=== PATIENT | male | born 1950 | race Caucasian/White ===

== ENCOUNTER → 2016-10-12 | Outpatient (REF) | payer MEDICARE, OTHER ==
[~2016-10-12] MED LIST: ASPI81TA85 PO; CIAL5TAB PO; CYCL10TA PO; SIMV20TA2 PO; TRAM37.53 PO; TRAZ50TA4 PO; VENL225T PO; tamsulosin PO
== END ==
LOC: M LAB REF 13:22
PROVIDERS: ATTEND Internal Medicine
DX: Z01.89 Encounter for other specified special examinations (principal)

== ENCOUNTER 2017-01-11 08:12 | Outpatient (CLI) | payer MEDICARE, OTHER ==
[~2017-01-11] VITALS: Ht 165.1 cm; Wt 77.1 kg
[~2017-01-11 08:12] MED LIST changes: +FLOM5CAP PO; +TRAZ50TA11 PO; -TRAZ50TA4 PO; +VENL75TA2 PO
[2017-01-11] MEDS ORDERED: NS 1,000 ML IV ONE (08:30)
[2017-01-11] MEDS ORDERED: PROPOFOL 200 MG/20 ML VIAL As Ordered ONE (09:05)
--- NOTE | 2017-01-11 09:33 | ROOR ---
Patient Name: Marcell Ocampo Procedure Date: 01/11/2017 9:11 AM Date of : 1950 Age: 66 [facility]: [facility] Gender: Male Note Status: Finalized Procedure: Total Colonoscopy to Cecum + Cold Snare Polypectomy + Hemoclips Indications: High risk colon cancer surveillance: Personal history of colonic polyps, Last colonoscopy: 2010 Providers: Jeancarlos Modi MD Referring MD: Karena VERDIN MD Requesting Provider: Medicines: Monitored Anesthesia Care Complications: No immediate complications. Procedure: Pre-Anesthesia Assessment: - The heart rate, respiratory rate, oxygen saturations, blood pressure, adequacy of pulmonary ventilation, and response to care were monitored throughout the procedure. The Colonoscope was introduced through the anus and advanced to the cecum, identified by appendiceal orifice and ileocecal valve. The colonoscopy was performed without difficulty. The patient tolerated the procedure well. The quality of the bowel preparation was good. Findings: The perianal and digital rectal examinations were normal. Non-bleeding internal hemorrhoids were found during retroflexion. The hemorrhoids were small and Grade I (internal hemorrhoids that do not prolapse). Scattered small-mouthed diverticula were found in the recto-sigmoid colon, sigmoid colon and descending colon. A medium polyp was found in the mid ascending colon. The polyp was sessile. The polyp was removed with a cold snare. Resection and retrieval were complete. To prevent bleeding after the polypectomy, two hemostatic clips were successfully placed (MR conditional). There was no bleeding at the end of the procedure. The exam was otherwise without abnormality on direct and retroflexion views. Impression: - Non-bleeding internal hemorrhoids. - Diverticulosis in the recto-sigmoid colon, in the sigmoid colon and in the descending colon. - One medium polyp in the mid ascending colon, removed with a cold snare. Resected and retrieved. Clips (MR conditional) were placed. - The examination was otherwise normal on direct and retroflexion views. - The exam was otherwise normal to the cecum. Recommendation: - Patient has a contact number available for emergencies. The signs and symptoms of potential delayed complications were discussed with the patient. Return to normal activities tomorrow. Written discharge instructions were provided to the patient. - High fiber diet. - Discharge patient to home. - Continue present medications. - Await pathology results. - Telephone GI clinic for pathology results in 1 week. - Repeat colonoscopy for surveillance based on pathology results. - Return to referring physician. - The findings and recommendations were discussed with the patient's family. Jeancarlos Modi MD Jeancarlos Modi MD 01/11/2017 9:32:48 AM This report has been signed electronically. Number of Addenda: 0 Note Initiated On: 01/11/2017 9:11 AM Estimated Blood Loss: Estimated blood loss: none.
[2017-01-11 09:54] VITALS: BP 121/84
== END 2017-01-11 10:02 | disposition home or self-care (01) ==
LOC: M OPP 08:12
PROVIDERS: ATTEND Internal Medicine Gastroenterology
DX: Z12.11 Encounter for screening for malignant neoplasm of colon (principal); Z86.010 Personal history of colon polyps; D12.2 Benign neoplasm of ascending colon; K64.0 First degree hemorrhoids; K57.30 Diverticulosis of large intestine without perforation or abscess without bleeding; I12.9 Hypertensive chronic kidney disease with stage 1 through stage 4 chronic kidney disease, or unspecified chronic kidney disease; E78.5 Hyperlipidemia, unspecified; M54.5 Low back pain; G47.30 Sleep apnea, unspecified; K21.9 Gastro-esophageal reflux disease without esophagitis; K59.00 Constipation, unspecified; F41.9 Anxiety disorder, unspecified; F32.9 Major depressive disorder, single episode, unspecified; N18.3 Chronic kidney disease, stage 3 (moderate); N40.1 Benign prostatic hyperplasia with lower urinary tract symptoms; Z98.1 Arthrodesis status; F17.220 Nicotine dependence, chewing tobacco, uncomplicated; Z88.8 Allergy status to other drugs, medicaments and biological substances; Z91.041 Radiographic dye allergy status; Z79.82 Long term (current) use of aspirin; Z79.899 Other long term (current) drug therapy

== ENCOUNTER → 2019-04-23 | Outpatient (CLI) | payer MEDICARE ==
[~2019-04-23] MED LIST changes: +FLOM0.4C39 PO; -FLOM5CAP PO; -SIMV20TA2 PO; +SIMV20TA22 PO; +TRAZ-252 PO; -TRAZ50TA11 PO; -VENL225T PO; +VENL225T5 PO
--- NOTE | 2019-04-23 18:58 | REP ---
HISTORY: Pain after trauma. COMPARISON: The latest prior for comparison is a two view exam obtained 10/18/2010. Transpedicular screw is again seen L5 and S1 bilaterally, status quo. L5-S1 fusion unchanged. Vertebral body height and alignment unchanged. Disc space narrowing at every level has increased from the prior exam. Small partial syndesmophytes are again seen at L2-3 and L3-4, but increased slightly from the prior exam. IMPRESSION: Chronic changes. Electronically Signed by Garcia Murrieta DO 04/23/2019 07:50 P
== END ==
LOC: M WUC 18:04
PROVIDERS: ATTEND Physician Assistant
DX: M54.5 Low back pain (principal)

== ENCOUNTER → 2020-02-17 | Outpatient (REF) | payer MEDICARE, OTHER ==
[~2020-02-17] MED LIST changes: -ASPI81TA85 PO; +ASPI81TA86 PO; +CYCL-707 PO; -CYCL10TA PO
== END ==
LOC: M LAB REF 17:09
PROVIDERS: ATTEND Internal Medicine
DX: M10.9 Gout, unspecified (principal)

== ENCOUNTER → 2021-03-29 | Outpatient (CLI) | payer MEDICARE, OTHER ==
--- NOTE | 2021-03-29 14:51 | REP ---
INDICATION: PVC'S COMPARISON: 03/03/2012. TECHNIQUE: PA/Lateral FINDINGS: Lungs: Clear, no infiltrate. Heart: Normal in size. Mediastinum: Mediastinal silhouette unremarkable. Pleural angles: Unremarkable.. Bones and soft tissues: Unremarkable. Metallic plate and screws are seen in the cervical spine. IMPRESSION: No acute pulmonary disease. <Electronically signed by Juancarlos Ag > 03/29/21 [id number]
== END ==
LOC: M WUC 13:06
PROVIDERS: ATTEND Internal Medicine
DX: I49.3 Ventricular premature depolarization (principal)

== ENCOUNTER → 2021-10-26 | Outpatient (CLI) | payer MEDICARE, OTHER ==
[2021-10-26 16:13] LABS: CALCIUM LEVEL 9.6 MG/DL (8.8-10.2); CREATININE FOR GFR 1.82 MG/DL (0.70-1.30); GLOMERULAR FILTRATION RATE 39.4 (>42); PHOSPHORUS LEVEL 3.4 MG/DL (2.5-4.9)
== END ==
LOC: M WUC 14:10
PROVIDERS: ATTEND Internal Medicine Cardiovascular Disease
DX: I11.9 Hypertensive heart disease without heart failure (principal)

== ENCOUNTER 2022-05-13 17:39 | Emergency (ER) | payer MEDICARE, OTHER ==
[~2022-05-13] VITALS: Ht 165.1 cm; Wt 84.5 kg
[2022-05-13] MEDS ORDERED: ONDANSETRON 4MG 2ML VIAL IV ONE (18:10)
[2022-05-13] MEDS ORDERED: ISOVUE-370 76% 100ML VIAL As Ordered ONE (18:27)
[2022-05-13 18:32] LABS: BASO % 0.2 % (0.0-1.0); EOS # 0.1 10^3/uL (0.0-0.5); EOS % 0.6 % (0.0-3.0); HEMATOCRIT 50.5 % (42.0-52.0); HEMOGLOBIN 17.2 g/dl (13.5-17.5); LYMPH # 0.3 10^3/uL (1.5-5.0); LYMPH % 2.9 % (24.0-44.0); MEAN CORPUSCULAR HEMOGLOBIN 31.2 pg (27.0-33.0); MEAN CORPUSCULAR HGB CONC 34.1 g/dl (32.0-36.5); MEAN CORPUSCULAR VOLUME 91.7 fl (80.0-96.0); MONO # 0.5 10^3/uL (0.0-0.8); MONO % 4.2 % (2.0-8.0); NEUTROPHILS # 9.8 10^3/uL (1.5-8.5); NEUTROPHILS % 91.7 % (36.0-66.0); PLATELET COUNT, AUTOMATED 214 10^3/uL (150-450); RED BLOOD COUNT 5.51 10^6/uL (4.30-6.10); WHITE BLOOD COUNT 10.6 10^3/uL (4.0-10.0)
[2022-05-13 18:50] LABS: CK-MB VALUE MASS < 1.0 NG/ML (<3.6); LIPASE 36 U/L (12-53)
[2022-05-13 18:52] LABS: CPK CREATINE PHOSPHOKINASE 67 U/L (46-171); MB/CK RELATIVE INDEX 1.49 (< OR =4)
[2022-05-13 18:53] LABS: ALBUMIN 4.2 G/DL (3.2-5.2); ALKALINE PHOSPHATASE 66 U/L (46-116); ALT/SGPT 25 U/L (7.0-40); AST/SGOT 19 U/L (<34); BILIRUBIN,DIRECT 0.3 MG/DL (<0.4); BILIRUBIN,TOTAL 1.1 MG/DL (0.3-1.2); BLOOD UREA NITROGEN 18 MG/DL (9-23); CALCIUM LEVEL 9.2 MG/DL (8.3-10.6); CARBON DIOXIDE LEVEL 23 MMOL/L (20-31); CHLORIDE LEVEL 106 MMOL/L (98-107); CREATININE FOR GFR 1.49 MG/DL (0.70-1.30); GLOMERULAR FILTRATION RATE 49.6 (>42); GLUCOSE, FASTING 138 MG/DL (74-106); POTASSIUM SERUM 4.4 MMOL/L (3.5-5.1); SODIUM LEVEL 140 MMOL/L (136-145); TOTAL PROTEIN 7.7 G/DL (5.7-8.2)
[2022-05-13 18:55] LABS: THYROID STIMULATING HORMONE 1.451 uIU/ML (0.55-4.78)
[2022-05-13 18:57] LABS: RSV AMPLIFICATION NEGATIVE (NEGATIVE)
[2022-05-13 20:23] LABS: CK-MB VALUE MASS < 1.0 NG/ML (<3.6)
[2022-05-13 20:27] LABS: CPK CREATINE PHOSPHOKINASE 59 U/L (46-171); MB/CK RELATIVE INDEX 1.69 (< OR =4)
[2022-05-13] MEDS ORDERED: NS 1,000 ML IV ONE (21:55)
[2022-05-13] MEDS ORDERED: KETOROLAC 30 MG/ML 1ML VIAL IV ONE (21:55)
[2022-05-13] MEDS ORDERED: ONDA4TAB6 PO (23:10)
[2022-05-13 23:15] VITALS: BP 91/53
== END 2022-05-13 23:42 | disposition home or self-care (01) ==
LOC: M ED 17:39
DX: A08.11 Acute gastroenteropathy due to Norwalk agent (principal); R07.89 Other chest pain; I10 Essential (primary) hypertension; E78.5 Hyperlipidemia, unspecified; F12.10 Cannabis abuse, uncomplicated; K80.20 Calculus of gallbladder without cholecystitis without obstruction; Z79.82 Long term (current) use of aspirin; Z79.899 Other long term (current) drug therapy; Z88.8 Allergy status to other drugs, medicaments and biological substances
CPT/HCPCS: 36415; 71045; 71275; 74177; 80047; 80048; 80076; 82550; 82553; 83690; 84439; 84443; 84484; 85025; 87507; 87631; 93005; 93041; 94760; 96374; 96375; 99285; J1885; J2405; Q9967

== ENCOUNTER → 2022-07-11 | Outpatient (CLI) | payer MEDICARE, OTHER ==
[~2022-07-11] MED LIST changes: +ASPI81TA26 PO; +CARV6.25 PO; +CHLO125TA PO; +ONDA4TAB6 PO; +SPIR-10 PO
== END ==
LOC: M LABSMTC 08:44
PROVIDERS: ATTEND Anesthesiology
DX: Z01.812 Encounter for preprocedural laboratory examination (principal)

== ENCOUNTER 2022-07-16 07:45 | Day surgery (SDC) | payer MEDICARE, OTHER ==
[~2022-07-16] VITALS: Ht 165.1 cm; Wt 85.9 kg
[~2022-07-16 07:45] MED LIST changes: +NS 1,000 ML IV ONE
[2022-07-16] MEDS ORDERED: propofoL 200 MG/20 ML VIAL As Ordered ONE (08:21)
[2022-07-16] MEDS ORDERED: LIDOCAINE 2% 100MG/5ML SDV (FOR ANES.) As Ordered ONE (08:21)
[2022-07-16 10:10] VITALS: BP 115/64
== END 2022-07-16 10:12 | disposition home or self-care (01) ==
LOC: M OPP 07:45
PROVIDERS: ATTEND Internal Medicine Gastroenterology
DX: Z12.11 Encounter for screening for malignant neoplasm of colon (principal); Z86.010 Personal history of colon polyps; D12.6 Benign neoplasm of colon, unspecified; K64.0 First degree hemorrhoids; K57.30 Diverticulosis of large intestine without perforation or abscess without bleeding; E78.00 Pure hypercholesterolemia, unspecified; I11.9 Hypertensive heart disease without heart failure; G47.33 Obstructive sleep apnea (adult) (pediatric); Z99.89 Dependence on other enabling machines and devices; Z79.02 Long term (current) use of antithrombotics/antiplatelets; Z79.82 Long term (current) use of aspirin; Z79.899 Other long term (current) drug therapy

== ENCOUNTER → 2022-10-16 | Outpatient (CLI) | payer MEDICARE, OTHER ==
[~2022-10-16] MED LIST changes: -NS 1,000 ML IV ONE
[2022-10-16 14:56] LABS: ALBUMIN 4.1 G/DL (3.2-5.2); CALCIUM LEVEL 9.2 MG/DL (8.3-10.6); CREATININE FOR GFR 1.83 MG/DL (0.70-1.30); PHOSPHORUS LEVEL 3.1 MG/DL (2.4-5.1); POTASSIUM SERUM 4.2 MMOL/L (3.5-5.1)
== END ==
LOC: M WUC 09:08
PROVIDERS: ATTEND Internal Medicine Cardiovascular Disease
DX: I49.3 Ventricular premature depolarization (principal); R06.02 Shortness of breath

== ENCOUNTER → 2023-03-18 | Outpatient (CLI) | payer MEDICARE, OTHER | LOC: M RAD 13:22 | PROVIDERS: ATTEND Internal Medicine | DX: N28.9 Disorder of kidney and ureter, unspecified (principal) ==

== ENCOUNTER → 2023-07-17 | Outpatient (REF) | payer MEDICARE, OTHER | LOC: M LAB REF 16:59 | PROVIDERS: ATTEND Internal Medicine Nephrology | DX: N40.1 Benign prostatic hyperplasia with lower urinary tract symptoms (principal) ==

== ENCOUNTER → 2024-02-04 | Outpatient (CLI) | payer MEDICARE, OTHER ==
[~2024-02-04] MED LIST changes: +ONDA-282 PO; -ONDA4TAB6 PO; +TRAM1TAB42 PO; -TRAM37.53 PO
== END ==
LOC: M PLALAB 14:08
PROVIDERS: ATTEND Urology
DX: N40.0 Benign prostatic hyperplasia without lower urinary tract symptoms (principal)

== ENCOUNTER → 2024-08-04 | Outpatient (CLI) | payer MEDICARE, OTHER ==
[~2024-08-04] MED LIST changes: -FLOM0.4C39 PO; +TAMS-18 PO
[2024-08-04 15:23] LABS: THYROID STIMULATING HORMONE 2.708 uIU/ML (0.55-4.78)
[2024-08-04 15:24] LABS: FREE T4 0.99 NG/DL (0.89-1.76)
== END ==
LOC: M EKG 14:13
PROVIDERS: ATTEND Registered Nurse
DX: I49.3 Ventricular premature depolarization (principal); E07.9 Disorder of thyroid, unspecified

== ENCOUNTER → 2024-08-07 | Outpatient (CLI) | payer MEDICARE, OTHER ==
[~2024-08-07] MED LIST changes: +FLOM0.4C39 PO; -TAMS-18 PO
== END ==
LOC: M PLALAB 11:10
PROVIDERS: ATTEND Urology
DX: Z12.5 Encounter for screening for malignant neoplasm of prostate (principal); Z53.9 Procedure and treatment not carried out, unspecified reason

== ENCOUNTER → 2025-01-25 | Outpatient (CLI) | payer MEDICARE, OTHER ==
[~2025-01-25] MED LIST changes: -FLOM0.4C39 PO; +TAMS-18 PO
== END ==
LOC: M PLAIMG 10:21
PROVIDERS: ATTEND Registered Nurse
DX: I77.810 Thoracic aortic ectasia (principal); I37.1 Nonrheumatic pulmonary valve insufficiency

== ENCOUNTER → 2025-03-11 | Outpatient (REF) | payer MEDICARE, OTHER | LOC: M LABSMT 08:12 | PROVIDERS: ATTEND Urology | DX: Z53.9 Procedure and treatment not carried out, unspecified reason (principal) ==